=== PATIENT | female | born 1970 | race Two or more races ===

== ENCOUNTER 2017-11-16 10:34 | Outpatient (CLI) | payer OTHER | END 2017-11-16 11:07 | disposition home or self-care (01) | LOC: LAB 10:34 | DX: D64.9 Anemia, unspecified (principal); R73.09 Other abnormal glucose; E03.8 Other specified hypothyroidism; N39.0 Urinary tract infection, site not specified; E78.2 Mixed hyperlipidemia; E55.9 Vitamin D deficiency, unspecified; M19.90 Unspecified osteoarthritis, unspecified site ==